=== PATIENT | male | born 1945 | race Caucasian/White ===

== ENCOUNTER 2017-08-25 12:44 | Day surgery (SDC) | payer MEDICARE ==
[2017-08-25] MEDS ORDERED: PROPOFOL 10 MG/ML VIAL IV ONE (12:45)
[2017-08-25] MEDS ORDERED: LIDOCAINE 2% MDV (20MG/ML) 20ML VIAL IV ONE (12:45)
--- NOTE | 2017-08-26 13:50 | Operative Note ---
DATE OF SURGERY: 08/25/2017 OPERATION: COLONOSCOPY to the cecum with cold snare polypectomy x1 and cold biopsy forceps polypectomy x1. INDICATION: History of adenomatous polyps in the past. Last colonoscopy was 5 years ago. ANESTHESIA: Intravenous sedation was administered by the department of anesthesiology and included Diprivan titrated to effect. PROCEDURE: Following informed consent from this alert individual including a discussion of the risks and benefits of the procedure and an opportunity for the patient to ask questions, the patient was in the left lateral decubitus position. A digital rectal examination was performed. No abnormalities were noted. Following this, the Olympus THC017 video colonoscope was inserted into the rectum without resistance. The rectal mucosa had a normal appearance with normal folds and distensibility. The colonoscope was advanced up through the bowel to the level of the cecum without much difficulty. Throughout the bowel the mucosa appeared normal, the folds were normal, and the bowel was fairly well distensible. The cecum was defined by noting the appendiceal orifice and ileocecal valve. The colon preparation was good. There were a few scattered diverticula noted in the ascending colon near the cecum. Also noted with a diminutive 3 mm polyp at the junction of the cecum and ascending colon which was removed with cold biopsy forceps. Retroflexion in the cecum was endoscopically unremarkable. From this point, the colonoscope was then withdrawn. Again a few diverticula were noted in the ascending colon and in the sigmoid region. Also in the sigmoid colon was a polyp measuring 4-5 mm in size which was removed with cold snare polypectomy and suctioned through the colonoscope into a collection trap. No other changes were appreciated. Retroflexion in the rectum was endoscopically unremarkable. The instrument was removed. The patient tolerated the procedure well and was returned to the recovery area in stable condition. IMPRESSION: 1. A 3 mm cecal polyp removed with cold biopsy forceps. 2. A 4-5 mm sigmoid polyp removed with cold snare polypectomy. 3. Diverticulosis. RECOMMENDATIONS: The patient was advised he should receive a copy of his pathology report at home in the next 2-3 weeks. If not, he was asked to call my office to review the results of testing today. Further recommendations may be forthcoming pending those results. Followup will also be with Dr. Rosalino Villa. As always, thank you for allowing me to participate in the care of your patient. CC: Dr. Rosalino MCCAULEY
== END 2017-08-25 14:45 | disposition home or self-care (01) ==
LOC: HOP 12:44
PROVIDERS: ATTEND Internal Medicine Gastroenterology
DX: Z86.010 Personal history of colon polyps (principal); D12.5 Benign neoplasm of sigmoid colon; K63.5 Polyp of colon; I10 Essential (primary) hypertension; M10.9 Gout, unspecified